=== PATIENT | female | born 1975 | race African-American/Black ===

== ENCOUNTER 2016-12-01 17:44 | Emergency (ER) | payer OTHER ==
[2016-12-01] MEDS ORDERED: Benzonatate 100 MG CAP ONE (18:24)
[2016-12-01] MEDS ORDERED: HYDROcodone/Acetaminophen 10/325 mg Tablet ONE (18:24)
[2016-12-01] MEDS ORDERED: AMOXicillin 250 MG CAP ONE (18:24)
[2016-12-01] MEDS ORDERED: Naproxen 500 MG TAB ONE (18:24)
[2016-12-01] MEDS ORDERED: Oxymetazoline HCl 0.05% ( 15 ML ) ONE (18:26)
== END 2016-12-01 18:47 | disposition home or self-care (01) ==
LOC: MADERS 17:44
DX: J06.9 Acute upper respiratory infection, unspecified (principal); I10 Essential (primary) hypertension; F17.210 Nicotine dependence, cigarettes, uncomplicated
CPT/HCPCS: 99283

== ENCOUNTER 2017-04-27 08:28 | Emergency (ER) | payer OTHER, SELFPAY ==
[2017-04-27] MEDS ORDERED: Labetalol HCl 100 MG/20 ML VIAL ONE (09:05)
--- NOTE | 2017-04-27 09:34 | RAD ---
1 VIEW CHEST: Date: 04/27/17 COMPARISON: 05/17/16. HISTORY: Hypertension. 1 VIEW CHEST: FINDINGS: Normal cardiac silhouette. Pulmonary vessels and hilum are normal. Costophrenic angles are clear. No masses or consolidation. No pneumothorax or osseous abnormalities. IMPRESSION: No acute cardiopulmonary process. POS: [facility]
[2017-04-27 09:41] LABS: #Basophils 0.1 thou/uL (0.0-0.2); #Eosinphils 0.1 thou/uL (0.0-0.7); #Lymphocytes 2.4 thou/uL (1.20-3.40); #Monocytes 0.5 thou/uL (0.11-0.59); %Basophils 1.5 % (0.0-1.0); %Eosinophils 1.9 % (0.0-10.0); %Lymphocytes 33.7 % (21.0-51.0); %Monocytes 6.4 % (0.0-10.0); %Neutrophils 56.6 % (42.0-75.0); Hemoglobin 13.9 g/dL (12.0-16.0); Mean Corpuscular HGB CONC 32.2 g/dL (32.0-36.0); Mean Corpuscular Hemoglobin 26.2 pg (27.0-31.0); Mean Corpuscular Volume 81.3 fl (81.0-99.0); Mean Platelet Volume 5.7 fL (7.4-10.4); Platelet Count 279 thou/uL (130-400); Red Blood Cell (RBC) Count 5.32 mill/uL (4.20-5.40); White Blood Cell (WBC) Count 7.1 thou/uL (4.8-10.8)
[2017-04-27 09:48] LABS: PTT 27.6 SEC (22.9-36.1); Prothrombin Time 13.7 SEC (12.0-14.7)
[2017-04-27 09:50] LABS: BHCG - Serum Negative (NEGATIVE); Pregs Control Background? CLEAR/WHITE (CLR/WHITE); Pregs Control Bar Appear? YES (CONTROL BAR)
[2017-04-27 10:01] LABS: ALT (SGPT) 18 U/L (8-55); AST (SGOT) 17 U/L (5-34); Albumin 3.6 g/dL (3.5-5.0); Alkaline Phosphatase 140 U/L (40-150); Anion Gap 13 mmol/L (10-20); BUN (Urea Nitrogen) 11 mg/dL (7.0-18.7); Bilirubin, Total 0.4 mg/dL (0.2-1.2); CK (CPK) 123 U/L (29-168); CKMB 1.4 ng/mL (0-6.6); Calc. Creatinine Clearance 0 mL/min (70-130); Calcium 8.8 mg/dL (7.8-10.44); Carbon Dioxide 26 mmol/L (22-29); Chloride 104 mmol/L (98-107); Estimated GFR-MDRD Greater than 90; Globulin 3.4 g/dL (2.4-3.5); Glucose 89 mg/dL (70-105); Magnesium 1.8 mg/dL (1.6-2.6); Potassium 4.4 mmol/L (3.5-5.1); Sodium 139 mmol/L (136-145); Troponin I Less than 0.010 ng/mL (< 0.028)
[2017-04-27] MEDS ORDERED: Ketorolac Tromethamine 30 MG/ML VIAL ONE (10:27)
[2017-04-27 11:14] LABS: Bilirubin Negative (Negative); Blood, Urine Trace (Negative); Clarity Clear (Clear); Glucose, Urine (Dipstick) Negative (Negative); Leukocyte Small (Negative); Nitrite Negative (Negative); Protein, Urine (Dipstick) Negative (Neg-Trace); Specific Gravity, Urine 1.015 (1.005-1.030); Squamous Epithelial 0-3 HPF (0-3); Urobilinogen 0.2 mg/dL (0.2-1.0); WBC/HPF 0-3 HPF (0-3)
[2017-04-27 11:15] LABS: Bacteria/HPF Rare-Few HPF (None Seen); Trichomonas/HPF 1+ HPF (None Seen)
[2017-04-27] MEDS ORDERED: metroNIDAZOLE 250 MG TAB ONE (11:34)
== END 2017-04-27 11:40 | disposition home or self-care (01) ==
LOC: MADERS 08:28
DX: A59.01 Trichomonal vulvovaginitis (principal); I10 Essential (primary) hypertension; E66.9 Obesity, unspecified; F17.210 Nicotine dependence, cigarettes, uncomplicated
CPT/HCPCS: 71010; 80053; 81001; 82550; 82553; 83735; 83880; 84443; 84484; 84703; 85025; 85610; 85730; 87086; 93005; 94760; 96374; 96375; 96376; J1885

== ENCOUNTER 2017-05-28 10:12 | Emergency (ER) | payer OTHER ==
[~2017-05-28 10:12] MED LIST: Iopamidol 370 76% 125 ML VIAL FS ONE; Sodium Chloride 0.9% 100 ML BAG ONE
[2017-05-28] MEDS ORDERED: Nitroglycerin 2% Ointment 1 INCH/1 GM Packet ONE (10:21)
[2017-05-28 10:55] LABS: PTT 27.9 SEC (22.9-36.1)
[2017-05-28 10:56] LABS: Hemoglobin 13.6 g/dL (12.0-16.0); Mean Corpuscular HGB CONC 33.2 g/dL (32.0-36.0); Mean Corpuscular Hemoglobin 27.1 pg (27.0-31.0); Mean Corpuscular Volume 81.6 fl (81.0-99.0); Mean Platelet Volume 5.3 fL (7.4-10.4); Platelet Count 303 thou/uL (130-400); RBC Distribution Width 13.5 % (11.5-14.5); Red Blood Cell (RBC) Count 5.02 mill/uL (4.20-5.40); White Blood Cell (WBC) Count 5.4 thou/uL (4.8-10.8)
--- NOTE | 2017-05-28 10:56 | RAD ---
RADIOGRAPH CHEST 1 VIEW: HISTORY: 42-year-old female with acute chest pain. FINDINGS: Because of body habitus, there is poor visualization of the lung bases, especially peripherally. Ther e is no interval change overall since 04/27/17. There are no air space densities, pulmonary edema, pn eumothorax, or cardiomegaly. The lateral costophrenic angles are sharp. IMPRESSION: No acute cardiopulmonary findings. magda berger POS: [facility]
[2017-05-28 10:57] LABS: Lymphocytes 27 % (21-51); MDiff Complete? YES; Monocytes 3 % (0-10); Neutrophil 59 % (42-75)
[2017-05-28 11:05] LABS: ALT (SGPT) 28 U/L (8-55); AST (SGOT) 29 U/L (5-34); Albumin 3.8 g/dL (3.5-5.0); Alkaline Phosphatase 145 U/L (40-150); Anion Gap 14 mmol/L (10-20); BUN (Urea Nitrogen) 8 mg/dL (7.0-18.7); Bilirubin, Total 0.5 mg/dL (0.2-1.2); Calc. Creatinine Clearance 0 mL/min (70-130); Calcium 9.2 mg/dL (7.8-10.44); Carbon Dioxide 25 mmol/L (22-29); Chloride 104 mmol/L (98-107); Estimated GFR-MDRD 86; Globulin 4.1 g/dL (2.4-3.5); Glucose 94 mg/dL (70-105); Magnesium 1.9 mg/dL (1.6-2.6); Potassium 4.3 mmol/L (3.5-5.1); Protein, Total 7.9 g/dL (6.0-8.3); Sodium 139 mmol/L (136-145)
[2017-05-28 11:08] LABS: CKMB 1.4 ng/mL (0-6.6); Troponin I Less than 0.010 ng/mL (< 0.028)
[2017-05-28 11:14] LABS: D-Dimer Test 0.5 *mcg/mL (0.27-0.43)
[2017-05-28] MEDS ORDERED: Amlodipine 5 MG TAB ONE (11:44)
[2017-05-28] MEDS ORDERED: HYDROcodone/Acetaminophen 5/325 mg Tablet ONE (12:23)
--- NOTE | 2017-05-28 13:30 | CT ---
CT ANGIO OF CHEST PERFORMED WITH INTRAVENOUS CONTRAST ENHANCEMENT WITH 3D RECONSTRUCTIONS: History: Chest pain, elevated D-Dimer. Comparison: 01-05-13 FINDINGS: The right lobe of the thyroid is enlarged. There is substernal extension that is more prominent than on that examination. Review is also made of a CT of the neck which was performed 02-25-15 which showed a finding that is similar to the current study. Some slight narrowing to the transverse dimension of the trachea related to this. There are some subcarinal lymph nodes present with an AP dimension of a pproximately 14 mm. This is fairly similar to what was seen on the previous exam. There are small aor ticopulmonary window and prevascular nodes also seen, also with some mild bilateral hilar lymphadenop athy. The largest node in the left hilar region measures 18 mm. It is increased in size as compared t o the previous 2013 study. There is questionable distal esophageal wall thickening. Clinical correlat ion as to any symptoms that would suggest reflux and consideration for endoscopy as clinically indica fidelina. There appears to be a small hiatal hernia associated with this. No significant axillary adenopathy is appreciated. There is some more peripherally oriented areas of nodularity seen in both lower lobes. I cannot exclude these as masses but could just represent some n odular areas of infiltrate but definitely warrant follow up. The thoracic aorta is normal in caliber. There is fair pulmonary artery opacification. No central pul monary embolus. Peripheral emboli cannot be excluded. There are fatty changes of the liver. IMPRESSION: 1. No CT evidence for pulmonary embolus. 2. Enlarging soft tissue mass which appears to arise from the lower pole of the right lobe of the thy roid gland. This has been present on a 2013 study and is increased in size with greater substernal ex tension. It is similar to the 2015 exam. It measures 5.9 cm in maximum dimension. It is felt to repre sent a substernal extension of a goiter. 3. Mild mediastinal and hilar adenopathy which is nonspecific. It is more prominent than on the previ ous examination. It may be reactive. 4. Slightly nodular more peripherally oriented parenchymal opacities in both lower lobes. I would ten d to favor that this represents patchy areas of nodular infiltrate. Pulmonary masses are not excluded . I would recommend a short term follow up CT examination as these areas would be difficult to visual ize by plain film. Follow up would be indicated after antibiotic therapy if patient has symptoms that would suggest infection. A short term 4-[address] examination would be suggested for complete assess ment. 5. Fatty changes of the liver, 6. Small hiatal hernia. Code T POS: [facility]
[2017-05-28] MEDS ORDERED: Labetalol HCl 100 MG TAB ONE (13:32)
== END 2017-05-28 15:00 | disposition short-term general hospital (02) ==
LOC: MADERS 10:12
DX: R07.9 Chest pain, unspecified (principal); R06.02 Shortness of breath; I10 Essential (primary) hypertension; E66.9 Obesity, unspecified; F17.210 Nicotine dependence, cigarettes, uncomplicated; Z79.899 Other long term (current) drug therapy
CPT/HCPCS: 36415; 71010; 71275; 80053; 82553; 83735; 83880; 84443; 84484; 85025; 85379; 85730; 93005; J7050

== ENCOUNTER 2017-10-20 20:23 | Emergency (ER) | payer OTHER ==
[2017-10-20] MEDS ORDERED: Ondansetron ODT 4 MG TAB ONE (20:59)
[2017-10-20] MEDS ORDERED: Nitroglycerin 2% Ointment 1 INCH/1 GM Packet ONE (20:59)
[2017-10-20] MEDS ORDERED: Promethazine HCl 25 MG/ML VIAL ONE (21:15)
== END 2017-10-20 21:38 | disposition home or self-care (01) ==
LOC: MADERS 20:23
DX: A08.4 Viral intestinal infection, unspecified (principal); F17.210 Nicotine dependence, cigarettes, uncomplicated; Z79.899 Other long term (current) drug therapy
CPT/HCPCS: 96372; J2550; Q0162

== ENCOUNTER 2018-01-16 18:40 | Emergency (ER) | payer OTHER ==
[~2018-01-16 18:40] MED LIST changes: +Iopamidol 370 76% 100 ML VIAL ONE; -Iopamidol 370 76% 125 ML VIAL FS ONE; -Sodium Chloride 0.9% 100 ML BAG ONE
[2018-01-16 19:44] LABS: BHCG - Serum Negative (NEGATIVE); Pregs Control Background? CLEAR/WHITE (CLR/WHITE); Pregs Control Bar Appear? YES (CONTROL BAR)
[2018-01-16 19:45] LABS: #Basophils 0.1 thou/uL (0.0-0.2); #Eosinphils 0.2 thou/uL (0.0-0.7); #Lymphocytes 2.6 thou/uL (1.20-3.40); #Monocytes 0.4 thou/uL (0.11-0.59); #Neutrophils 4.2 thou/uL (1.40-6.50); %Basophils 1.4 % (0.0-1.0); %Lymphocytes 34.6 % (21.0-51.0); %Monocytes 5.7 % (0.0-10.0); %Neutrophils 55.4 % (42.0-75.0); Hemoglobin 12.4 g/dL (12.0-16.0); Mean Corpuscular HGB CONC 31.7 g/dL (32.0-36.0); Mean Corpuscular Hemoglobin 23.9 pg (27.0-31.0); Mean Corpuscular Volume 75.2 fL (78.0-98.0); Mean Platelet Volume 5.4 fL (7.4-10.4); Platelet Count 306 thou/uL (130-400); RBC Distribution Width 15.5 % (11.5-14.5); White Blood Cell (WBC) Count 7.6 thou/uL (4.8-10.8)
[2018-01-16 19:46] LABS: Manual Diff?? NO
[2018-01-16] MEDS ORDERED: Ketorolac Tromethamine 30 MG/ML VIAL ONE (20:11)
[2018-01-16 20:12] LABS: ALT (SGPT) 18 U/L (8-55); AST (SGOT) 18 U/L (5-34); Albumin 3.5 g/dL (3.5-5.0); Alkaline Phosphatase 122 U/L (40-150); Anion Gap 15 mmol/L (10-20); BUN (Urea Nitrogen) 8 mg/dL (7.0-18.7); Bilirubin, Total 0.3 mg/dL (0.2-1.2); Calc. Creatinine Clearance 0 mL/min (70-130); Calcium 8.9 mg/dL (7.8-10.44); Carbon Dioxide 27 mmol/L (22-29); Chloride 105 mmol/L (98-107); Estimated GFR-MDRD 85; Globulin 3.6 g/dL (2.4-3.5); Glucose 120 mg/dL (70-105); Lipase 28 U/L (8-78); Potassium 4.5 mmol/L (3.5-5.1); Protein, Total 7.1 g/dL (6.0-8.3); Sodium 142 mmol/L (136-145)
[2018-01-16] MEDS ORDERED: Labetalol HCl 100 MG/20 ML VIAL ONE (20:57)
[2018-01-16 22:07] LABS: Bilirubin Negative (Negative); Blood, Urine Large (Negative); Clarity Clear (Clear); Glucose, Urine (Dipstick) Negative (Negative); Leukocyte Small (Negative); Nitrite Negative (Negative); Protein, Urine (Dipstick) Negative (Neg-Trace); Urobilinogen 0.2 mg/dL (0.2-1.0)
[2018-01-16 22:09] LABS: Bacteria/HPF None Seen HPF (None Seen)
[2018-01-16 22:10] LABS: Trichomonas/HPF 1+ HPF (None Seen)
--- NOTE | 2018-01-16 22:42 | CT ---
CT ABDOMEN AND PELVIS WITH IV CONTRAST: 01/16/18 Multiple axial tomograms obtained through the abdomen and pelvis with IV enhancement. INDICATIONS: Right lower quadrant pain. Comparison made to previous CT abdomen and pelvis from January 2013. FINDINGS: Lung bases show nonspecific nodular densities in both posterior lung bases. There was some nodularity on the prior exam in the right lung base; however, there are now scattered small nodular densities i n both lung bases with a more confluent area of opacity which is pleural based in the right lung base measuring up to 2 cm. This should be followed up with elective chest CT. Liver, spleen, and pancreas unremarkable. Adrenal gland and kidneys unremarkable. Urinary bladder unremarkable. Small bowel loops appear normal. The colon is unremarkable. The appendix is not identified. there is no findings that would indicate appendicitis. There is stool throughout the colon. The aorta is normal caliber. The retroperitoneal adenopathy noted on the prior exam is less prominent on the current study. There are a few scattered nonspecific lymph nodes. Images through pelvis show a prominent uterus for age. The endometrium is also very prominent. There is density within the endom etrial cavity. This should be further evaluated by gynecology. Correlate with serum HCG level. The ut erine size and endometrial prominence is significantly different from the 02/12/13 exam. IMPRESSION: 1. The uterus is enlarged and endometrium is also prominent with density within the endometrium. A intrauterine should be excluded. If HCG is negative, PRODUCTION FLOATER consultation is recommended. 2. Otherwise no acute intra-abdominal process. POS: [facility]
[2018-01-17] MEDS ORDERED: Acetaminophen/Codeine 30-300mg Tablet ONE (00:30)
[2018-01-17] MEDS ORDERED: cloNIDine 0.1 MG TAB ONE (00:30)
[2018-01-17] MEDS ORDERED: Ciprofloxacin 500 MG TAB ONE (00:41)
== END 2018-01-17 00:48 | disposition home or self-care (01) ==
LOC: MADERS 18:40
DX: N39.0 Urinary tract infection, site not specified (principal); N85.8 Other specified noninflammatory disorders of uterus; I10 Essential (primary) hypertension; E66.9 Obesity, unspecified; F32.9 Major depressive disorder, single episode, unspecified; F17.210 Nicotine dependence, cigarettes, uncomplicated; Z79.899 Other long term (current) drug therapy
CPT/HCPCS: 36415; 74177; 80053; 81001; 82150; 83605; 83690; 84703; 85025; 87086; 96374; 96375; J1885

== ENCOUNTER 2018-05-27 11:26 | Emergency (ER) | payer OTHER ==
[2018-05-27 12:12] LABS: #Basophils 0.1 thou/uL (0.0-0.2); #Eosinphils 0.2 thou/uL (0.0-0.7); #Lymphocytes 2.5 thou/uL (1.20-3.40); #Monocytes 0.6 thou/uL (0.11-0.59); %Basophils 0.8 % (0.0-1.0); %Eosinophils 2.2 % (0.0-10.0); %Lymphocytes 29.7 % (21.0-51.0); %Monocytes 7.6 % (0.0-10.0); %Neutrophils 59.7 % (42.0-75.0); Hemoglobin 12.4 g/dL (12.0-16.0); Mean Corpuscular HGB CONC 30.7 g/dL (32.0-36.0); Mean Corpuscular Hemoglobin 23.2 pg (27.0-31.0); Mean Corpuscular Volume 75.6 fL (78.0-98.0); Mean Platelet Volume 5.7 fL (7.4-10.4); Platelet Count 351 thou/uL (130-400); RBC Distribution Width 14.8 % (11.5-14.5); Red Blood Cell (RBC) Count 5.34 mill/uL (4.20-5.40); White Blood Cell (WBC) Count 8.4 thou/uL (4.8-10.8)
[2018-05-27 12:25] LABS: BHCG - Serum Negative (NEGATIVE); Pregs Control Background? CLEAR/WHITE (CLR/WHITE); Pregs Control Bar Appear? YES (CONTROL BAR)
[2018-05-27 12:26] LABS: Anion Gap 12 mmol/L (10-20); BUN (Urea Nitrogen) 11 mg/dL (7.0-18.7); CK (CPK) 157 U/L (29-168); Calc. Creatinine Clearance 0 mL/min (70-130); Calcium 9.3 mg/dL (7.8-10.44); Carbon Dioxide 29 mmol/L (22-29); Chloride 101 mmol/L (98-107); Estimated GFR-MDRD 90; Glucose 98 mg/dL (70-105); Sodium 138 mmol/L (136-145)
[2018-05-27 12:28] LABS: Anisocytosis SLIGHT = 6-15 cells (100X) (0-5/hpf); PLT Morphology Comment Appears Adequate
== END 2018-05-27 12:40 | disposition home or self-care (01) ==
LOC: MADERS 11:26
DX: I10 Essential (primary) hypertension (principal); B34.9 Viral infection, unspecified; E66.9 Obesity, unspecified; F32.9 Major depressive disorder, single episode, unspecified; F17.210 Nicotine dependence, cigarettes, uncomplicated; Z79.899 Other long term (current) drug therapy
CPT/HCPCS: 80048; 82550; 84703; 85025; 99284

== ENCOUNTER 2019-03-10 14:10 | Emergency (ER) | payer OTHER ==
--- NOTE | 2019-03-10 14:52 | RAD ---
LEFT SHOULDER 3 VIEWS: Date: 03/10/19 COMPARISON: 04/05/14. HISTORY: Pain. FINDINGS: Acromioclavicular and coracoclavicular distance is maintained. Visualized left ribs are unremarkable. No fracture or dislocation. IMPRESSION: Unremarkable left shoulder 3 views. No fracture or dislocation. POS: [facility]
== END 2019-03-10 15:10 | disposition home or self-care (01) ==
LOC: MADERS 14:10
DX: S13.4XXA Sprain of ligaments of cervical spine, initial encounter (principal); I10 Essential (primary) hypertension; E66.9 Obesity, unspecified; J42 Unspecified chronic bronchitis; F32.9 Major depressive disorder, single episode, unspecified; F17.210 Nicotine dependence, cigarettes, uncomplicated; X58.XXXA Exposure to other specified factors, initial encounter
CPT/HCPCS: 93005

== ENCOUNTER 2019-04-19 08:16 | Emergency (ER) | payer OTHER ==
[2019-04-19] MEDS ORDERED: Fentanyl 100 MCG/2 ML VIAL ONE ×2 (08:40→09:38)
[2019-04-19 09:00] LABS: BHCG - Serum Negative (NEGATIVE); Pregs Control Background? CLEAR/WHITE (CLR/WHITE); Pregs Control Bar Appear? YES (CONTROL BAR)
[2019-04-19 09:06] LABS: ALT (SGPT) 17 U/L (8-55); AST (SGOT) 20 U/L (5-34); Albumin 3.9 g/dL (3.5-5.0); Alkaline Phosphatase 127 U/L (40-110); Anion Gap 13 mmol/L (10-20); BUN (Urea Nitrogen) 9 mg/dL (7.0-18.7); Bilirubin, Total 0.4 mg/dL (0.2-1.2); Calc. Creatinine Clearance 0 mL/min (70-130); Calcium 8.8 mg/dL (7.8-10.44); Carbon Dioxide 22 mmol/L (22-29); Chloride 107 mmol/L (98-107); Estimated GFR-MDRD 90; Globulin 3.4 g/dL (2.4-3.5); Glucose 119 mg/dL (70-105); Potassium 4.4 mmol/L (3.5-5.1); Protein, Total 7.3 g/dL (6.0-8.3); Sodium 138 mmol/L (136-145)
[2019-04-19 09:07] LABS: Hemoglobin 11.5 g/dL (12.0-16.0); Mean Corpuscular HGB CONC 30.7 g/dL (32.0-36.0); Mean Corpuscular Hemoglobin 22.3 pg (27.0-31.0); Mean Corpuscular Volume 72.8 fL (78.0-98.0); Mean Platelet Volume 5.4 fL (7.4-10.4); Platelet Count 383 thou/uL (130-400); RBC Distribution Width 16.1 % (11.5-14.5); Red Blood Cell (RBC) Count 5.17 mill/uL (4.20-5.40); White Blood Cell (WBC) Count 7.9 thou/uL (4.8-10.8)
[2019-04-19 09:16] LABS: Anisocytosis SLIGHT = 6-15 cells (100X) (0-5/hpf); Band 2 % (5-11); Eosinophils 4 % (0-10); Lymphocytes 26 % (21-51); MDiff Complete? YES; Microcytosis SLIGHT = 6-15 cells (100X) (0-5/hpf); Monocytes 8 % (0-10); Neutrophil 60 % (42-75); Platelet Morphology Comment Appears Adequate
--- NOTE | 2019-04-19 09:19 | CT ---
CT Abdomen Pelvis W Con: 04/19/2019 8:42 AM CLINICAL INFORMATION: Left suprapubic pain for 3 days COMPARISON: 02/12/2013 TECHNIQUE: Multiple contiguous axial images were obtained and a CT of the abdomen and pelvis with IV contrast. C oronal and sagittal reformats were performed. FINDINGS: Lower Chest: within normal limits. Abdomen: Liver: within normal limits. Bile Ducts: Normal caliber. Gallbladder: No calcified gallstones. Normal caliber wall. Pancreas: within normal limits. Spleen: within normal limits. Adrenals: within normal limits. Kidneys: within normal limits. Pelvis: Reproductive Organs: No pelvic masses. Hyperdensity within the cervix may represent blood products if the patient is undergoing menstruation. Ureters: within normal limits. Bladder: within normal limits. Peritoneum: No ascites or free air, no fluid collection. Bowel: Normal caliber. Mesentery and Retroperitoneum: No enlarged mesenteric or retroperitoneal lymph nodes. Vessels: Normal. Abdominal Wall: within normal limits. Bones: Within normal limits IMPRESSION: 1. No evidence of acute intraabdominal or pelvic abnormality. 2. Hyperdensity in the uterus may represent ongoing menstruation or a cervical mass. Correlate with h istory.
[2019-04-19] MEDS ORDERED: Iopamidol 370 76% 100 ML VIAL ONE (09:34)
[2019-04-19 10:14] LABS: Bilirubin Negative (Negative); Blood, Urine Large (Negative); Glucose, Urine (Dipstick) Negative (Negative); Leukocyte Negative (Negative); Nitrite Negative (Negative); Protein, Urine (Dipstick) Trace mg/dL (Neg-Trace); Urobilinogen 0.2 mg/dL (Less than 2)
[2019-04-19 10:15] LABS: Clarity Hazy (Clear)
[2019-04-19 10:16] LABS: Bacteria/HPF Rare-Few HPF (None Seen); RBC/HPF Greater than 50 HPF (0-3); Squamous Epithelial 0-3 HPF (0-3); WBC/HPF 0-3 HPF (0-3)
== END 2019-04-19 10:59 | disposition short-term general hospital (02) ==
LOC: MADERS 08:16
DX: N85.9 Noninflammatory disorder of uterus, unspecified (principal); I10 Essential (primary) hypertension; E66.9 Obesity, unspecified; F32.9 Major depressive disorder, single episode, unspecified; F17.210 Nicotine dependence, cigarettes, uncomplicated; Z79.899 Other long term (current) drug therapy
CPT/HCPCS: 74177; 80053; 81003; 81015; 83605; 84703; 85025; 96374; 96376; J3010; Q9967

== ENCOUNTER 2019-07-19 07:45 | Emergency (ER) | payer OTHER | END 2019-07-19 08:50 | disposition home or self-care (01) | LOC: MADERS 07:45 | DX: J06.9 Acute upper respiratory infection, unspecified (principal); E66.9 Obesity, unspecified; I10 Essential (primary) hypertension; F32.9 Major depressive disorder, single episode, unspecified; F17.210 Nicotine dependence, cigarettes, uncomplicated | CPT/HCPCS: 99283 ==

== ENCOUNTER 2019-07-26 15:22 | Emergency (ER) | payer OTHER ==
[2019-07-26] MEDS ORDERED: Triamcinolone 40 MG/ML VIAL ONE (17:29)
== END 2019-07-26 17:50 | disposition home or self-care (01) ==
LOC: MADERS 15:22
DX: J98.01 Acute bronchospasm (principal); J11.83 Influenza due to unidentified influenza virus with otitis media; I10 Essential (primary) hypertension; E66.9 Obesity, unspecified; F32.9 Major depressive disorder, single episode, unspecified; F17.210 Nicotine dependence, cigarettes, uncomplicated
CPT/HCPCS: 96372; 99282; J3301